=== PATIENT | female | born 1965 | race Two or more races ===

== ENCOUNTER 2024-07-11 23:52 | Emergency (ER) | payer OTHER ==
[~2024-07-11] VITALS: Ht 157.5 cm; Wt 81.8 kg
--- NOTE | 2024-07-12 00:16 | ED.PDOC ---
Foreign Body HPI Comments 58-year-old female came to ER via EMS were foreign body ingestion. Patient was at a green party earlier today, with eating cake with [employer] eggs when she felt like she choked on the food. Complaining of throat pain, felt like something stuck in her throat. No drooling or stridor noted. Chief Complaint: Foreign body Time Seen by MD: 00:15 History of Present Illness: Enamel Pulverizer Notes Allergies: Coded Allergies: NO KNOWN ALLERGIES (Unverified , 07/12/24) Information Source: Patient, Emergency Med Personnel Mode of Arrival: EMS Timing: Minutes Duration: Since onset Severity: Moderate Ability to handle secretions: Normal Prehospital treatment: None Location: Throat Context: Ingestion Foreign Body: Candy Removal: Was not attempted Associated signs and symptoms: Pain Past Medical History PAST MEDICAL HISTORY: HTN Surgical History: Denies all surgeries COMPLIANCE INTERN History: Denies all COMPLIANCE INTERN Hx Family History Family History: Reviewed,noncontributory to illness Social History Smoker: Non-Smoker Alcohol: Denies ETOH Use Drugs: Denies Drug Use Lives In: Home Constitutional: denies: chills, diaphoresis, fatigue, fever, malaise, sweats, weakness, others EENTM: reports: throat pain; denies: blurred vision, double vision, ear bleeding, ear discharge, ear drainage, ear pain, ear ringing, eye pain, eye redness, hearing loss, mouth pain, mouth swelling, nasal discharge, nose bleeding, nose congestion, nose pain, photophobia, tearing, throat swelling, voice changes, others Respiratory: denies: cough, hemoptysis, orthopnea, SOB at rest, shortness of breath, SOB with excertion, stridor, wheezing, others Cardiovascular: denies: chest pain, dizzy spells, diaphoresis, Dyspnea on exertion, edema, irregular heart beat, left arm pain, lightheadedness, palpitations, PND, syncope, others Gastrointestinal: denies: abdomen distended, abdominal pain, blood streaked bowels, constipated, diarrhea, dysphagia, difficulty swallowing, hematemesis, melena, nausea, poor appetite, poor fluid intake, rectal bleeding, rectal pain, vomiting, others Genitourinary: denies: abnormal vagina bleeding, burning, dyspareunia, dysuria, flank pain, frequency, hematuria, incontinence, pain, , vagina discharge, urgency, others Neurological: denies: dizziness, fainting, headache, left sided numbness, left sided weakness, numbness, paresthesia, pre-existing deficit, right sided numbness, right sided weakness, seizure, speech problems, tingling, tremors, weakness, others Musculoskeletal: denies: back pain, gout, joint pain, joint swelling, muscle pain, muscle stiffness, neck pain, others Integumetry: denies: bruises, change in color, change in hair/nails, dryness, laceration, lesions, lumps, rash, wounds, others Allergic/Immunocompromised: denies: Difficulty Healing, Frequent Infections, Hives, Itching, others Hematologic/Lymphatic: denies: anemia, blood clots, easy bleeding, easy bruising, swollen glands, others Endocrine: denies: excessive hunger, excessive sweating, excessive thirst, excessive urination, flushing, intolerance to cold, intolerance to heat, unexplained weight gain, unexplained weight loss, others Psychiatric: denies: anxiety, bipolar disorder, depression, hopeless, panic disorder, schizophrenia, sleepless, suicidal, others Physical Exam General Appearance: No Apparent Distress, Normal HEENT: Normal ENT Inspection, Pharynx Normal, TMs Normal Neck: Full Range of Motion, Non-Tender, Normal, Normal Inspection Respiratory: Chest Non-Tender, Lungs Clear, No Accessory Muscle Use, No Respiratory Distress, Normal Breath Sounds Cardiovascular: No Edema, No JVD, No Murmur, No Gallop, Normal Peripheral Pulses, Regular Rate/Rhythm Breast Exam: Deferred Gastrointestinal: No Organomegaly, Non Tender, No Pulsatile Mass, Normal Bowel Sounds, Soft Genitalia: Deferred Pelvic: Deferred Rectal: Deferred Extremities: No calf tenderness, Normal capillary refill, Normal inspection, Normal range of motion, Non-tender, No pedal edema Musculoskeletal : Apperance: Normal Neurologic: Alert, cold roll operator II-XII nml as Tested, No Motor Deficits, Normal Affect, Normal Mood, No Sensory Deficits Cerebellar Function: Normal Reflexes: Normal Skin: Dry, Normal Color, Warm Lymphatic: No Adenopathy Was a procedure done? Was a procedure done?: No FB Differential Dx Differential Diagnosis: Airway Obstruction, Esophageal Obstruction, Foreign Body X-Ray, Labs, Meds, VS Vital Signs Date Time Temp Pulse Resp B/P (MAP) Pulse Ox O2 Delivery O2 Flow Rate FiO2 07/12/24 00:36 99.0 85 17 156/86 (109) 99 99.0 07/12/24 00:35 85 17 98 Room Air* 0 21 07/12/24 00:00 97.6 90 28 170/84 (112) 99 97.6 Lab Test 07/12/24 01:19 Range/Units White Blood Count 11.3 H 4.4-10.8 10^3/uL Red Blood Count 4.85 4.0-5.20 10^6/uL Hemoglobin 14.4 12.2-16.2 g/dL Hematocrit 43.7 36.0-46.0 % Mean Corpuscular Volume 90.0 80.0-100.0 fL Mean Corpuscular Hemoglobin 29.7 28.0-32.0 pg Mean Corpuscular Hemoglobin Concent 33.0 32.0-36.0 g/dL Red Cell Distribution Width 14.5 H 11.8-14.3 % Platelet Count 300 140-450 10^3/uL Mean Platelet Volume 7.8 6.9-10.8 fL Neutrophils (%) (Auto) 71.7 37.0-80.0 % Lymphocytes (%) (Auto) 21.1 10.0-50.0 % Monocytes (%) (Auto) 6.0 0.0-12.0 % Eosinophils (%) (Auto) 0.5 0.0-7.0 % Basophils (%) (Auto) 0.7 0.0-2.0 % Neutrophils # (Auto) 8.1 1.6-8.6 10 ^3/uL Lymphocytes # (Auto) 2.4 0.4-5.4 10 ^3/uL Monocytes # (Auto) 0.7 0-1.3 10 ^3/uL Eosinophils # (Auto) 0.1 0-0.8 10 ^3/uL Basophils # (Auto) 0.1 0-0.2 10 ^3/uL Nucleated Red Blood Cells 0.0 % Prothrombin Time 10.3 9.3-11.8 sec Prothrombin Time INR 0.97 0.9-1.15 Activated Partial Thromboplast Time 28.5 24.5-34.5 SEC Sodium Level 140 136-145 mmol/L Potassium Level 3.3 L 3.5-5.1 mmol/L Chloride Level 103 98-107 mmol/L Carbon Dioxide Level 29 20-31 mmol/L Anion Gap 8 5-15 Blood Urea Nitrogen 14 9-23 mg/dL Creatinine 0.74 0.550-1.02 mg/dL Glomerular Filtration Rate Calc 93 >90 mL/min BUN/Creatinine Ratio 18.9 10.0-20.0 Serum Glucose 135 H 74-106 mg/dL Calcium Level 10.0 8.7-10.4 mg/dL Current Medications Medications (Trade) Dose Ordered Sig/Gia Route Start Time Stop Time Status Last Admin Glucagon (Glucagen) 1 mg ONCE ONCE IV 07/12/24 00:15 07/12/24 00:16 DC 07/12/24 00:37 Al Hydrox/Mg Hydrox/Simethicone (Maalox Plus) 30 ml ONCE ONCE PO 07/12/24 00:15 07/12/24 00:16 DC 07/12/24 00:37 Ondansetron HCl (Zofran) 4 mg ONCE ONCE IV 07/12/24 00:15 07/12/24 00:16 DC 07/12/24 00:37 CHEST RADIOGRAPH Indication: swallowed FB / pain Technique: Single frontal view of the chest was obtained Comparison: None Findings / IMPRESSION: Low with bronchovascular crowding. Mild bibasilar subsegmental atelectasis. No obvious focal consolidation or pneumothorax . No radiopaque foreign bodies. Time of 1ST Reevaluation: 00:07 Reevaluation 1ST: Unchanged Patient Education/Counseling: Diagnosis, Treatment Family Education/Counseling: No Family Present Departure 1 Departure Time of Disposition: 01:00 Impression: Primary Impression: Choking episode Additional Impression: Swallowed foreign body Disposition: 01 HOME / SELF CARE / HOMELESS Condition: Stable Discharged With: Self Critical Care Note Critical Care Time?: No Stability Stability form required: No Heart Score Heart Score: Heart Score Response (Comments) Value History N/A 0 EKG N/A 0 Age N/A 0 Risk Factors N/A 0 Troponin N/A 0 Total 0 I personally scribed for SAM COLLINS MD ([email or web address]) on 07/12/24 at 00:16. Electronically submitted by Morales Smyth ([email or web address]). I personally scribed for SAM COLLINS MD ([email or web address]) on 07/12/24 at 01:08. Electronically submitted by Morales Smyth ([email or web address]). SAM COLLINS MD Jul 12, 2024 00:16
[2024-07-12 00:35] VITALS: PULSE 85; RESP 17; O2SAT 98
[2024-07-12 00:36] VITALS: BP 156/86; PULSE 85; RESP 17; TEMP 99; O2SAT 99
[2024-07-12] MEDS: MAALOX PLUS or MAALOX 30 ML PO ONE (00:37)
[2024-07-12] MEDS: GLUCAGON EMERG KIT 1mg/1ml IV ONE (00:37)
[2024-07-12] MEDS: ONDANSETRON HCL 4 MG/2 ML VIAL IV ONE (00:37)
--- NOTE | 2024-07-12 00:54 | DVH ---
CHEST RADIOGRAPH Indication: swallowed FB / pain Technique: Single frontal view of the chest was obtained Comparison: None Findings / IMPRESSION: Low with bronchovascular crowding. Mild bibasilar subsegmental atelectasis. No obvious focal consolid ation or pneumothorax . No radiopaque foreign bodies.
--- NOTE | 2024-07-12 01:47 | DVH ---
EXAM: CT NECK WITHOUT CONTRAST INDICATION: Foreign body Exam Date: 07/12/2024 01:05 AM COMPARISON: None TECHNIQUE: CT of the neck without intravenous contrast. RADIATION DOSE: CTDIvol: 20 mGy, DLP: 660 mGy*cm FINDINGS: There is no evidence of cervical mass lesion, pathologically enlarged lymph nodes or fluid collection . The fat planes of the neck appear intact. The airway and larynx are unremarkable. The parotid, submandibular and thyroid glands are unremarkable. The visualized lung apices are clear. The limit ed visualized portions of the brain are unremarkable. The osseous structures are unremarkable. IMPRESSION: Noncontrast evaluation of the neck demonstrates no acute abnormalities. No evidence of radiopaque fo reign bodies. END IMPRESSION:
[2024-07-12 02:00] LABS: Basophils # (auto) 0.1 10 ^3/uL (0-0.2); Basophils % (auto) 0.7 % (0.0-2.0); Eosinophils # (auto) 0.1 10 ^3/uL (0-0.8); Eosinophils % (auto) 0.5 % (0.0-7.0); Hematocrit 43.7 % (36.0-46.0); Hemoglobin 14.4 g/dL (12.2-16.2); Lymphocytes # (auto) 2.4 10 ^3/uL (0.4-5.4); Lymphocytes % (auto) 21.1 % (10.0-50.0); Mean Corpuscular Hemoglobin 29.7 pg (28.0-32.0); Monocytes # (auto) 0.7 10 ^3/uL (0-1.3); Neutrophils # (auto) 8.1 10 ^3/uL (1.6-8.6); Neutrophils % (auto) 71.7 % (37.0-80.0); Platelet Count (auto) 300 10^3/uL (140-450); Red Blood Cells 4.85 10^6/uL (4.0-5.20); Red Cell Distribution Width 14.5 % (11.8-14.3); White Blood Cell 11.3 10^3/uL (4.4-10.8)
[2024-07-12 02:07] LABS: Chloride 103 mmol/L (98-107); Sodium 140 mmol/L (136-145)
[2024-07-12 02:08] LABS: Anion Gap 8 (5-15); Carbon Dioxide 29 mmol/L (20-31)
[2024-07-12 02:13] LABS: BUN/Creatinine Ratio 18.9 (10.0-20.0); Blood Urea Nitrogen 14 mg/dL (9-23)
[2024-07-12 02:16] LABS: INR 0.97 (0.9-1.15); Partial Thromboplastin Time 28.5 SEC (24.5-34.5); Prothrombin Time 10.3 sec (9.3-11.8)
[2024-07-12 02:55] LABS: Glucose 135 mg/dL (74-106); Potassium 3.3 mmol/L (3.5-5.1)
== END 2024-07-12 02:24 | disposition home or self-care (01) ==
LOC: ER 23:52 → EDBD 23:52 → ER 07-12 02:24
DX: T18.9XXA Foreign body of alimentary tract, part unspecified, initial encounter (principal); I10 Essential (primary) hypertension; R06.02 Shortness of breath; M54.2 Cervicalgia; W44.8XXA Other foreign body entering into or through a natural orifice, initial encounter; Y93.89 Activity, other specified; Y92.89 Other specified places as the place of occurrence of the external cause; Y99.8 Other external cause status
CPT/HCPCS: 36415; 70490; 71045; 80048; 85025; 85610; 85730; 96374; 96375; 99285; J1610; J2405